=== PATIENT | female | born 1985 | race Caucasian/White ===

== ENCOUNTER 2025-05-22 03:33 | Emergency (ER) | payer OTHER, SELFPAY ==
[2025-05-22 03:36] VITALS: BP 90/59; PULSE 104; RESP 18; TEMP 36.7; O2SAT 98; BMI 29.3
[2025-05-22 03:45] VITALS: BP 97/55; PULSE 103; RESP 18; O2SAT 97
--- NOTE | 2025-05-22 04:09 | EKG12_ITS ---
Test Reason : DYSRHYTHMIA Blood Pressure : */* mmHG Vent. Rate : 93 BPM Atrial Rate : 93 BPM P-R Int : 168 ms QRS Dur : 78 ms QT Int : 360 ms P-R-T Axes : 43 42 37 degrees QTcB Int : 447 ms Normal sinus rhythm Normal ECG Confirmed by CALLUM WADSWORTH, DEEP ([id number]), art editor CORTNEY NICOLAS ([id number]) on 05/25/2025 7:53:09 AM Referred By: Confirmed By: DEEP NOLEN MD
[2025-05-22 04:15] VITALS: BP 104/62; PULSE 99; RESP 18; O2SAT 98
[2025-05-22 04:19] LABS: Hematocrit 37.4 % (37-47); Hemoglobin 12.7 g/dL (12.0-15.0); Immature Granulocytes Count 0.040 X10^3/uL (0.0-0.0); Mean Corp Hgb Conc 34.0 g/dL (32-36); Mean Corpuscular Volume 85.8 fL (81-99); Mean Platelet Vol. 9.5 fl (6.2-12.0); NRBC Flagged by Analyzer 0 % (0-5); Platelet Count 303 K/mm3 (150-450); RBC Distribution Width CV 12.1 % (11.6-14.6); RBC Distribution Width SD 37.7 fl (35.1-43.9); Red Blood Count 4.36 M/mm3 (4.2-5.4); White Blood Count 10.2 K/mm3 (4.4-11.0)
[2025-05-22] MEDS: 0.9% Normal Saline (1000mL) 1,000 ML 1000 ML IV (04:24)
[2025-05-22 04:25] LABS: Internal QC Validated? YES +Cl - CLEAR BKGD; Pregnancy, Serum, hCG Quali. NEGATIVE Negative; Record Kit Lot#, Serum Preg. 0000962302
[2025-05-22 04:36] LABS: Anion Gap 15 (5-15); BUN 17 mg/dL (4-19); BUN/Creat Ratio 25.3 RATIO (10-20); Calcium,Total 8.6 mg/dL (7.6-11.0); Carbon Dioxide 23.4 mmol/L (21.0-32.0); Chloride 94 mmol/L (98-108); Estimated Creatinine Clearance 121.44 ml/min (50-250); Glucose 119 mg/dL (70-99); Potassium 3.1 mmol/L (3.3-5.1)
--- NOTE | 2025-05-22 04:44 | EX.ED.DYSGE1 ---
HPI History of Present Illness Chief Complaint: Dizziness Informant: patient Narrative Narrative: Brought by EMS from work. Walking back from lunch felt lightheaded no dizzy spinning when she went down. She did not pass out. No chest pain no shortness of breath. No recent vomiting diarrhea. No urinary symptoms. No recent cough. No recent travel or surgeries. Similar symptoms in the past however never fell down. History of bipolar schizoaffective disorder ADHD and hypertension on medications. Reports stable blood pressure in the 100s. Prior similar symptoms: Yes PFSH PFSH Medical History no medical history Allergy/AdvReac Type Severity Reaction Status Date / Time aloe Allergy Severe Anaphylaxis Verified 05/22/25 03:36 amoxicillin (From Augmentin) Allergy Intermediate SOB Verified 05/22/25 03:36 clavulanic acid (From Allergy Intermediate SOB Verified 05/22/25 03:36 Augmentin) clindamycin Allergy Intermediate SOB Verified 05/22/25 03:36 Family History no significant family his Surgical History no surgical history Social History Smoking Status: Current every day smoker tobacco type: e-cigarettes ROS ROS ED Constitutional Constitutional ED: Denies fever(s) Cardiovascular Cardiovascular: Reports other Details: Lightheaded ; Denies chest pain, palpitations or racing heartbeat Respiratory/Chest Respiratory/Chest: Denies cough Gastrointestinal Gastrointestinal: Denies abdominal pain, diarrhea or vomiting Genitourinary Genitourinary ED: Denies dysuria, hematuria or urinary frequency Musculoskeletal Musculoskeletal: Denies none Integumentary Denies rash or wounds Neurologic Neurologic: Denies headache(s), paresthesias or weakness EXAM Physical Exam Const Vital Signs: 05/22/25 03:36 05/22/25 03:45 05/22/25 04:15 Temperature 98.1 F Temperature Source Oral Pulse Rate 104 H 103 H 99 Respiratory Rate 18 18 18 Blood Pressure 90/59 L 97/55 L 104/62 Blood Pressure Mean 69 69 76 Pulse Ox 98 97 98 Oxygen Delivery Method Room Air Room Air Room Air 05/22/25 05:00 05/22/25 05:32 Temperature 98 F Temperature Source Pulse Rate 97 91 Respiratory Rate 18 18 Blood Pressure 108/66 100/55 L Blood Pressure Mean 80 70 Pulse Ox 99 99 Oxygen Delivery Method Room Air Positive well nourished and well developed General Appearance ED: well developed and NAD HEENT Reports dry mucous membranes HEENT Narrative: Mild dry mucosal membranes normocephalic and atraumatic Mouth ED: Yes dry mucous membranes Mouth: dry mucous membranes Eyes General Eye ED: Yes normal appearance of both eyes Neck full ROM Chest Wall Chest: Negative for tenderness Resp normal respiratory effort and normal air movement Effort and Inspection: symmetric chest movement; Negative for respiratory distress Cardio regular rate, regular rhythm and no murmurs Peripheral Pulses: pulses 2+ throughout GI normal to inspection, nondistended, normoactive bowel sounds and non-tender Palpation: Negative for guarding or rebound tenderness present Extremity normal to inspection General Extremety ED: Negative for edema or tenderness General Extremity: Negative for edema Neuro oriented x3, CN's II-XII intact bilaterally and no sensory deficits noted Neuro Narrative: No focal deficits Sensorium / Orientation: awake and alert Skin no rashes or lesions noted and no wounds MDM MDM MDM Narrative Medical decision making narrative: Interventions / MDM: Differential diagnosis: Near syncope, trauma abnormalities, dehydration Diagnosis considered but do not suspect: N/A My EKG interpretation: Sinus rate of 93, no ST or T wave changes. QTc 447 Imaging independently reviewed and interpreted by myself: N/A External documents reviewed: N/A Test considered but not ordered:N/A ED course: EKG normal. IV fluids given slight tachycardia on arrival with mild dry mucosal membranes. Basic labs ordered. No focal deficits on exam. Labs slight hyponatremia 132 potassium 3.1. hCG negative. Hemoglobin 12.7. Clinically stable reevaluation. Oral potassium given. She was ambulated with no difficulties. She will continue oral fluids for hydration. Outpatient follow-up. All questions were answered. Re-evaluation: stable Disposition discussed with patient/family/significant other: Case discussed with consulting clinician: N/A This note was generated with [employer] dictation software. It may contain incorrect words, spelling, and punctuation that were not noted in checking the note before signing. Lab Data Attestation: I reviewed the patient's lab results. Labs: Laboratory Results - last 24 hr 05/22/25 03:53 WBC 10.2 RBC 4.36 Hgb 12.7 Hct 37.4 MCV 85.8 MCH 29.1 MCHC 34.0 RDW Std Deviation 37.7 RDW Coeff of Windy 12.1 Plt Count 303 MPV 9.5 Immature Gran % (Auto) 0.400 Neut % (Auto) 76.0 H Lymph % (Auto) 16.2 L [place] % (Auto) 6.6 Eos % (Auto) 0.6 Baso % (Auto) 0.2 Absolute Neuts (auto) 7.7 Absolute Lymphs (auto) 1.65 Nucleated RBC % 0 Sodium 132 L Potassium 3.1 L Chloride 94 L Carbon Dioxide 23.4 Anion Gap 15 BUN 17 Creatinine 0.68 L Estim Creat Clear Calc 121.44 Est GFR (MDRD) Non-Af 114 BUN/Creatinine Ratio 25.3 H Glucose 119 H Calcium 8.6 Serum , Qual NEGATIVE Discharge Plan Triage Chief Complaint: Dizziness ED Provider: Jarrett Rodriguez Dx/Rx/DC Orders Clinical Impression: Near syncope, Hypokalemia, Hyponatremia Instructions: ED Hyponatremia, ED Hypokalemia, ED Near-Fainting, Uncertain Cause Stand Alone Forms: ED Work / School Excuse Primary Care Provider: Kilo Villagran Referrals: Kilo Villagran MD [Primary Care Provider] - Activity Restrictions/Additional Instructions: EKG normal. Labs normal hemoglobin 12.7. Your electrolytes sodium 132 potassium 3.1. You are given a liter of fluids you are given oral potassium. Your creatinine 0.68. Continue oral fluids for hydration. Follow-up with your doctor. Print Language: Occitan Disposition Disposition: Home, Self Care Discharge Date/Time: 05/22/25 05:33
[2025-05-22 05:00] VITALS: BP 108/66; PULSE 97; RESP 18; O2SAT 99
[2025-05-22] MEDS: Potassium Chloride Oral Tablet 20 MEQ 40 MEQ PO (05:00)
[2025-05-22 05:32] VITALS: BP 100/55; PULSE 91; RESP 18; TEMP 36.6; O2SAT 99
== END 2025-05-22 05:33 | disposition home or self-care (01) ==
PROVIDERS: Emergency Provider Emergency Medicine; PCP Family Medicine; Visit Provider Emergency Medicine
DX: R42 Dizziness and giddiness (principal); E87.6 Hypokalemia; E87.1 Hypo-osmolality and hyponatremia; R55 Syncope and collapse; I10 Essential (primary) hypertension; F17.290 Nicotine dependence, other tobacco product, uncomplicated
CPT/HCPCS: 80048; 84703; 85025; 93005; 96360; 99285; A4216